=== PATIENT | male | born 1940 | race Caucasian/White ===

== ENCOUNTER 2022-07-31 23:30 | Inpatient (IN) | payer MEDICARE ==
[~2022-07-31] VITALS: Ht 180.3 cm; Wt 68.0 kg
--- NOTE | 2022-08-01 00:10 | NUR ---
Xavier FALKx4, able to express his own concerns. Patient reports he does not feel like eating, taking meds or getting any treatment. Patient AOx4, able to express his concerns. No signs of distress vital signs stable on 2 lt. of Oxygen. Discussed plan of care, xavier verbalized agreement. All Safety precautons taken.
--- NOTE | 2022-08-01 00:12 | NUR ---
Patient refuses IV insertion or blood draw, states nothing needs to be done pertaining to his health.
--- NOTE | 2022-08-01 00:40 | NUR ---
[facility] SWAB COLLECTED AND SENT TO LAB. PATIENT'S BELONGINGS LIST DONE.
[2022-08-01] MEDS ORDERED: OLANZAPINE 10 MG VIAL IM PRN (01:00)
[2022-08-01] MEDS ORDERED: IV NS 0.9% 1,000 ML IV ONE (01:00)
[2022-08-01 02:00] LABS: BASOPHILS % (AUTO) 0.4 % (0.0-2.0); EOSINOPHILS % (AUTO) 0.1 % (0.0-6.0); HEMATOCRIT 42 % (39-51); HEMOGLOBIN 12.9 g/dL (13.5-17.5); LYMPHOCYTES # (AUTO) 0.6 K/uL (0.8-4.8); MEAN CORPUSCULAR HGB CONC 31 g/dl (31.0-36.0); MEAN CORPUSCULAR VOLUME 93 fL (80-96); MONOCYTES # (AUTO) 0.7 K/uL (0.1-1.30); MONOCYTES % (AUTO) 7.5 % (2.0-12.0); NEUTROPHILS # (AUTO) 7.8 K/uL (1.8-8.9); PLATELET COUNT (AUTO) 139 K/uL (150-450); RED BLOOD CELL COUNT(AUTO) 4.55 MIL/uL (4.5-6.0); WHITE BLOOD COUNT (AUTO) 9.2 K/uL (4.3-11.0)
[2022-08-01 02:19] LABS: ALANINE AMINOTRANSFERASE 296 U/L (12-78); ALBUMIN 3.2 g/dL (3.4-5.0); ALKALINE PHOSPHATASE 257 U/L (46-116); ASPARTATE AMINOTRANSFERASE 222 U/L (15-37); BILIRUBIN,DIRECT 0.4 mg/dL (0.0-0.2); BILIRUBIN,TOTAL 0.9 mg/dL (0.2-1.0); CALCIUM, SERUM 9.1 mg/dL (8.5-10.1); CHLORIDE 109 mmol/L (98-107); CREATININE 2.5 mg/dL (0.6-1.3); GLUCOSE 227 mg/dL (74-106); POTASSIUM 5.8 mmol/L (3.5-5.1); SODIUM SERUM 144 mmol/L (136-145); TOTAL PROTEIN, SERUM 6.5 g/dL (6.4-8.2); UREA NITROGEN, BLOOD 78 mg/dL (7-18)
[2022-08-01 02:21] LABS: ALCOHOL, BLOOD < 3 mg/dL (0-10)
[2022-08-01 02:26] LABS: CARBON DIOXIDE 20 mmol/L (21-32)
[2022-08-01] MEDS ORDERED: SODIUM POLYSTYRENE SULFONATE 15 G/60 ML BOTTLE PO ONE ×2 (02:30→15:00)
[2022-08-01] MEDS ORDERED: INSULIN REGULAR, HUMAN 100 UNIT/ML 10 ML VIAL IV ONE (02:30)
[2022-08-01] MEDS ORDERED: FUROSEMIDE 40 MG/4 ML VIAL IV ONE (02:30)
[2022-08-01] MEDS ORDERED: DEXTROSE 50%-WATER 50 ML DISP.SYRIN IV ONE (02:30)
[2022-08-01] MEDS ORDERED: FUROSEMIDE 20 MG/2 ML VIAL ONE (02:48)
[2022-08-01 02:55] LABS: BILIRUBIN,URINE NEGATIVE (NEGATIVE); COLOR,URINE DARK YELLOW (YELLOW); LEUKOCYTE ESTERASE ,URINE 2+ (NEGATIVE); NITRITE, URINE NEGATIVE (NEGATIVE); PROTEIN,URINE 2+ mg/dl (NEGATIVE); UGLUCOSE 3+ mg/dL (NEGATIVE)
[2022-08-01 02:57] LABS: BACTERIA,URINE Few /HPF (None Seen); SQUAMOUS EPITHELIAL CELL,UR Few /HPF (None Seen)
[2022-08-01] MEDS ORDERED: FLUD0.1T PO (03:29)
[2022-08-01] MEDS ORDERED: EMPA10TA PO (03:29)
[2022-08-01] MEDS ORDERED: ATOR20TA PO (03:29)
[2022-08-01] MEDS ORDERED: MIDO5TAB4 PO (03:29)
[2022-08-01] MEDS ORDERED: NICO-676 TP (03:29)
[2022-08-01] MEDS ORDERED: PANT40TA49 PO (03:29)
[2022-08-01] MEDS ORDERED: METO25PO2 MC (03:29)
[2022-08-01] MEDS ORDERED: ASPI-1169 PO (03:29)
--- NOTE | 2022-08-01 03:31 | NUR ---
Report given to Clotilde RN-[facility], patient clear for transfer
--- NOTE | 2022-08-01 03:46 | NUR ---
PT TRANSFERRING TO [facility] VIA ACLS PROTOCOL. VSS. ALL BELONGINGS WITH PT
--- NOTE | 2022-08-01 04:32 | NUR ---
MS/TELE/RN RECEIVED PATIENT FROM [facility] AT AROUND 03:45. PATIENT WAS AWAKE, ALERT, ORIENTED X 1, NO C/O PAIN, APPEAR COMFORTABLE, NO SIGNS OF DISTRESS NOTED. UNABLE TO OBTAIN ADMISSION INFORMATIONS THE PATIENT IS NOT ABLE TO ANSWER TO ADMISSION QUESTIONS. PHYSICAL ASSESSMENT WAS DONE, PHOTOS WERE TAKEN ON SKIN PROBLEMS. NURSING CARE DONE. REPOSITIONED TO COMFORT. FALL PRECAUTIONS PER PROTOCOL IMPLEMENTED. TAUGHT THE USE OF CALL LIGHT AND PLACED IT AT BEDSIDE WITHIN REACH. WILL MONITOR.
[2022-08-01 05:30] VITALS: BP 126/76; TEMP 97.9
[2022-08-01] MEDS ORDERED: DEXTROSE 50%-WATER 50 ML DISP.SYRIN IV PRN (05:30)
[2022-08-01] MEDS ORDERED: ACETAMINOPHEN 325 MG TABLET PO PRN (05:30)
[2022-08-01] MEDS ORDERED: IV NS 0.9% 1,000 ML IV PRN ×2 (05:30→14:04)
[2022-08-01] MEDS ORDERED: ONDANSETRON HCL/PF 4 MG/2 ML VIAL IVP PRN (05:30)
[2022-08-01] MEDS ORDERED: CEFTRIAXONE 1GM BAG (ER ONLY) 50 ML IV ONE (05:44)
[2022-08-01] MEDS ORDERED: CEFTRIAXONE 1 G in IV D5W 50 ML IV SCH (06:00)
--- NOTE | 2022-08-01 06:33 | NUR ---
MS/TELE/RN PATIENT REFUSED ACCU CHECK. EXPLAINED IMPORTANCE BUT WAS PASSIVE. WILL ENDORSE TO NEXT RN.
--- NOTE | 2022-08-01 06:34 | NUR ---
MS/TELE/RN CALLED [facility], SPOKE TO MARIANO PHELAN, PER ZHANE, PATIENT IS FULL CODE, NO ADVANCE DIRECTIVE NOR POLST. NO INFORMATIONS ABOUT VACCINES, PATIENT NOT ABLE TO AMBULATE, PUREED DIET CRUSH MEDICATIONS.
[2022-08-01 07:00] VITALS: BP 120/63; TEMP 98.7
[2022-08-01] MEDS: BLOOD SUGAR DIAGNOSTIC 1 EACH STRIP IN SCH ×4 (07:30→22:18)
--- NOTE | 2022-08-01 08:19 | NUR ---
RN OPENING NOTE RECEIVED PATIENT IN BED, ALERT AND ORIENTED TO NAME, REFUSED ACCU CHECK THIS MORNING X 3. ABLE TO RESPONDS ALL PHYSICAL STIMULI. RESPIRATORY EVEN AND UNLABORED WITH OXYGEN AT 2Ls VIA NC. IN NO ACUTE RESPIRATORY DISTRESS OBSERVED. SKIN IS WARM TO TOUCH, KEEP CLEAN/DRY. NOTICED Lt- BKA, MULTIPLE BRUISES ON BILATERAL UPPER EXTREMITIES/CHEST, AND SUTURED ON RT HAND. KEPT ELEVATED HOB FOR ASPIRATION PRECAUTION/ENSURE AIRWAY, ALSO LOWEST BED POSITIONED. BED ALARM IS ON AT ALL TIMES FOR SAFETY. CALL LIGHT WITHIN REACH, WILL CONTINUE TO MONITOR.
[2022-08-01] MEDS: PANTOPRAZOLE 40 MG TABLET.DR PO SCH (09:00)
[2022-08-01] MEDS: ASPIRIN 81 MG TAB.CHEW PO SCH (09:00)
[2022-08-01] MEDS ORDERED: METOPROLOL TARTRATE 25 MG TABLET PO SCH (09:00)
[2022-08-01] MEDS ORDERED: METO25TA6 PO (10:35)
--- NOTE | 2022-08-01 10:44 | NUR ---
PATIENT RECIEVED NEW ORDER LOVENOX 40MG SQ DAILY FOR DVT PROPHYLAXIS. NOTED AND CARRY OUT.
[2022-08-01] MEDS: ENOXAPARIN SODIUM 30 MG/0.3 ML DISP.SYRIN SQ SCH (11:58)
[2022-08-01 12:00] VITALS: BP 116/77; TEMP 97.5
--- NOTE | 2022-08-01 12:20 | NUR ---
PATIENT HAS BEEN DONE ECHOCARDIOGRAM AND NOTED EF IS 15%, INFORMED DR. SARAVIA.
[2022-08-01] MEDS ORDERED: SODIUM POLYSTYRENE SULF. PWD 15 GM UDC PO ONE (14:30)
[2022-08-01 15:22] LABS: CALCIUM, SERUM 8.5 mg/dL (8.5-10.1); CARBON DIOXIDE 22 mmol/L (21-32); CHLORIDE 109 mmol/L (98-107); GLUCOSE 205 mg/dL (74-106); POTASSIUM 4.4 mmol/L (3.5-5.1); SODIUM SERUM 142 mmol/L (136-145); UREA NITROGEN, BLOOD 75 mg/dL (7-18)
[2022-08-01] MEDS ORDERED: BUMETANIDE INJ 6 MG in IV NS 0.9% 36 ML IV ONE (15:30)
[2022-08-01 16:00] VITALS: BP 120/69; TEMP 98.4
--- NOTE | 2022-08-01 17:18 | NUR ---
POTASSIUM LEVEL WAS 5.8 FROM PREVIOUS, AND RECHECKED POTASSIUM LEVEL IS 4.4. CLARIFIED WITH DR. KNIGHT, WILL HOLD KAYEXALATE AND SODIUM POLYSTYRENE.
[2022-08-01] MEDS: INSULIN REGULAR, HUMAN 100 UNIT/ML 3 ML VIAL SQ PRN ×2 (17:33→22:20)
[2022-08-01] MEDS: METOPROLOL TARTRATE 25 MG TABLET PO SCH (17:43)
[2022-08-01] MEDS: MIDODRINE HCL (5MG) 5 MG TABLET PO SCH (17:43)
--- NOTE | 2022-08-01 18:57 | NUR ---
RN CLOSING NOTE PATIENT RESTING IN BED, IN NO ACUTE DISTRESS OBSERVED. RESPIRATORY EVEN AND UNLABORED IN ROOM AIR, NO SOB OR DESATURATION NOTED. SKIN IS WARM TO TOUCH KEEP CLEAN/DRY. KEPT ELEVATED HOB FOR ENSURE AIRWAY/ASPIRATION PRECAUTION. BED ALARM IS ON AT ALL TIMES FOR SAFETY. CALL LIGHT WITHIN REACH, WILL ENDORSE DIRECTOR UTILIZATION MANAGEMENT.
[2022-08-01 20:00] VITALS: BP 106/72; TEMP 98.2
--- NOTE | 2022-08-01 20:02 | NUR ---
MS/TELE/RN PATIENT APPEARS SLEEPING, APPEARS COMFORTABLE, NO SIGNS OF DISTRESS NOTED, CALL LIGHT IN REACH, FALL PRECAUTIONS PER PROTOCOL IMPLEMENTED, WILL MONITOR.
[2022-08-01] MEDS: ATORVASTATIN 10 MG TABLET PO SCH (22:18)
[2022-08-02] VITALS: BP 104/69; TEMP 97.8
[2022-08-02 05:15] VITALS: BP 102/52; TEMP 98
--- NOTE | 2022-08-02 06:43 | NUR ---
MS/TELE/RN PATIENT IS AWAKE AND ALERT, NO CHANGE IN CONDITION, REFUSED ACCU CHECK, EXPLAINED IMPORTANCE BUT STILL REFUSED. WILL ENDORSE TO NEXT RN. ALL NEEDS ATTENDED AT THIS TIME, WILL CONTINUE TO MONITOR.
--- NOTE | 2022-08-02 07:15 | NUR ---
RN OPENING NOTE RECEIVED PATIENT IN BED ASLEEP BUT AROUSABLE, A/O X1 IN NO ACUTE DISTRESS OBSERVED. RESPIRATORY EVEN AND UNLABORED IN ROOM AIR, NO SOB OR DESATURATION NOTED. SKIN IS WARM TO TOUCH KEEP CLEAN/DRY. KEPT ELEVATED HOB FOR ENSURE AIRWAY/ASPIRATION PRECAUTION. PATIENT STILL REFUSING ACCU CHECK AT THIS TIME. BED ALARM IS ON, CALL LIGHT WITHIN REACH, WILL CONTINUE TO MONITOR
[2022-08-02] MEDS: BLOOD SUGAR DIAGNOSTIC 1 EACH STRIP IN SCH ×4 (07:30→21:08)
[2022-08-02 08:00] VITALS: BP 119/71; TEMP 97.6
[2022-08-02] MEDS: CEFTRIAXONE 1 G in IV D5W 50 ML IV SCH (08:35)
[2022-08-02] MEDS: NICOTINE PATCH (7MG) 7 MG PATCH.TD24 TD SCH (08:35)
[2022-08-02] MEDS: ASPIRIN 81 MG TAB.CHEW PO SCH (08:36)
[2022-08-02] MEDS: PANTOPRAZOLE 40 MG TABLET.DR PO SCH (08:36)
[2022-08-02] MEDS: MIDODRINE HCL (5MG) 5 MG TABLET PO SCH ×4 (08:45→17:06)
[2022-08-02] MEDS: METOPROLOL TARTRATE 25 MG TABLET PO SCH ×2 (08:46→17:07)
[2022-08-02] MEDS: EMPAGLIFLOZIN 25 MG TABLET PO SCH (08:52)
[2022-08-02] MEDS: ENOXAPARIN SODIUM 30 MG/0.3 ML DISP.SYRIN SQ SCH (08:54)
--- NOTE | 2022-08-02 09:21 | NUR ---
Patient refused blood draw. Patient reeducated about importance of current lab values, including risks and benefits but patient still refused. Charge nurse blair, made aware.
[2022-08-02] MEDS: FUROSEMIDE 100 MG/10 ML VIAL IV SCH ×4 (09:30→17:15)
--- NOTE | 2022-08-02 09:59 | NUR ---
WOUND CARE CONSULT: PT PRESENTS WITH MULTIPLE SKIN ISSUES INCLUDING DRY WOUNDS/SCABS TO RT FOOT, DISCOLORATION/SCARRING TO LEFT BELOW KNEE AMPUTATION STUMP, SACRAL SCARRING AND RT HAND/THUMB PURULENT WOUNDS WITH SUTURES, ALL PRESENT ON ADMISSION. DR HOLLOWAY AND DR PRABHAKAR CALLED FOR DPM AND SURGICAL CONSULTS. DISCUSSED SKIN PROTECTION AND WOUND CARE RECOMMENDATIONS FOR SACRAL SCAR AND HAND WOUNDS WITH NURSING STAFF. PT IS INCONTINENT OF STOOL. PT IS THIN AND BONY. MD IN AGREEMENT WITH PLAN OF CARE. Addendum: 08/02/22 at 1001 by AVA TOLBERT WNDNU Amended: Links added.
--- NOTE | 2022-08-02 10:03 | NUR ---
Patient refused 1st dose of lasix 80mg, IV, Q4H. Risks and benefits of taking medications explained but patient still refused. Charge nurse MD александр informed.
[2022-08-02] MEDS: NEOMY SULF/BACITRAC ZN/POLY 15 GM TUBE TP SCH (11:00)
[2022-08-02 12:00] VITALS: BP 120/68; TEMP 97.8
[2022-08-02] MEDS: GLUCERNA SHAKE 237 ML CAN PO SCH ×2 (12:47→17:08)
--- NOTE | 2022-08-02 13:21 | NUR ---
Patient refused Midodrine HCL, 5mg, 1 tab, PO, TID. Risks and benefits of taking timely medications explained but patient still refused. Charge nurse MD александр informed
--- NOTE | 2022-08-02 13:35 | NUR ---
Patient refused 2nd dose of Lasix 80mg, IV, Q4H. Patient reeducated and explained risks and benefits of taking timely medications but patient still refused. Charge nurse MD александр informed
[2022-08-02 16:00] VITALS: BP 105/60; TEMP 98
[2022-08-02] MEDS: INSULIN REGULAR, HUMAN 100 UNIT/ML 3 ML VIAL SQ PRN ×2 (17:15→21:12)
--- NOTE | 2022-08-02 17:16 | NUR ---
Patient refused 3rd dose of Lasix 80mg, IV, Q4H. Patient reeducated and explained risks and benefits of taking timely medications but patient still refused. Charge nurse MD александр informed
--- NOTE | 2022-08-02 18:21 | NUR ---
RN CLOSING NOTE PATIENT RESTING IN BED, A/O X1, WITH BOUTS OF CONFUSION, IN NO ACUTE DISTRESS OBSERVED. RESPIRATORY EVEN AND UNLABORED IN 2L OXYGEN, SATURATING WELL, NO SOB OR DESATURATION NOTED. SKIN IS WARM TO TOUCH KEEP CLEAN/DRY. WOUND CARE NURSE SEEN THE PATIENT. APPLIED TRIPLE ANTIBIOTIC, ON RIGHT HAND, DRY WEST APPLIED, KEPT C/D/I. HOB ELEVATED, PATIENT ON ASPIRATION PRECAUTION, ALL MEDICATIONS CRUSHED. BED ALARM ON AT ALL TIMES FOR SAFETY. CALL LIGHT WITHIN REACH, WILL BE ENDORSED TO PM SHIFT NURSE FOR TIFFANY
--- NOTE | 2022-08-02 19:30 | NUR ---
EMPLOYEE RELATIONS ADVISOR OPENING NOTE RECEIVED PATIENT IN BED, WITH HOB ELEVATED, ALERT AND ORIENTED X 1 WITH CONFUSION. AFEBRILE AND NOT IN ANY FORM OF ACUTE DISTRESS. ON O2 INHALATION VIA NASAL CANNULA AT 2LPM. NO C/O PAIN OR DISCOMFORT AT THIS TIME. WITH IV ACCESS ON LFA 18-SL. SAFETY MEASURES IN PLACE. KEPT BED IN LOCKED AND IN LOW POSITION. SIDE RAILS UP X2. ADVISED YO USE THE CALL LIGHT WHEN IN NEED OF ASSISTANCE.
[2022-08-02 20:00] VITALS: BP 116/75; TEMP 97.3
[2022-08-02] MEDS: ATORVASTATIN 10 MG TABLET PO SCH (21:12)
[2022-08-03] VITALS: BP 108/61; TEMP 97.3
[2022-08-03 04:00] VITALS: BP 124/64; TEMP 97.5
--- NOTE | 2022-08-03 06:30 | NUR ---
POLE SANDER OPERATOR CLOSING NOTE PATIENT IN BED, WITH HOB ELEVATED, ASLEEP BUT EASY TO AROUSE AND RESPONSIVE. ABLE TO MAKE NEEDS KNOWN. AFEBRILE AND NOT IN ANY FORM OF ACUTE DISTRESS. ON O2 INHALATION VIA NASAL CANNULA AT 2LPM. NO C/O PAIN OR DISCOMFORT THROUGHOUT THE SHIFT. ON TELE MONITORING WITH CURRENT READING OF V PACING 81. WITH IV ACCESS ON LFA 18-SL. MONITORED FOR ANY S/SX. OF HYPO/HYPERGLYCEMIA. MEDICATED ORDERED. SAFETY MEASURES IN PLACE. KEPT BED IN LOCKED AND IN LOW POSITION. SIDE RAILS UP X2. ADVISED YO USE THE CALL LIGHT WHEN IN NEED OF ASSISTANCE. ALL NURSING NEEDS ATTENDED. ENDORSED TO INCOMING SHIFT FOR CONTINUITY OF CARE.
[2022-08-03] MEDS: BLOOD SUGAR DIAGNOSTIC 1 EACH STRIP IN SCH ×4 (06:49→21:44)
[2022-08-03] MEDS: INSULIN REGULAR, HUMAN 100 UNIT/ML 3 ML VIAL SQ PRN ×4 (06:52→21:43)
--- NOTE | 2022-08-03 07:30 | NUR ---
PERFECT BINDER OPERATOR OPENING NOTE PATIENT RECEIVED IN BED, WITH HOB ELEVATED, ASLEEP AND APPEARS COMFORTABLE. AFEBRILE AND NOT IN ANY FORM OF ACUTE DISTRESS. ON O2 INHALATION VIA NASAL CANNULA AT 2LPM. PER PREVIOUS SHIFT ENDORSEMENT, NO C/O PAIN OR DISCOMFORT THROUGHOUT THE PREVIOUS SHIFT. ON TELE MONITORING WITH CURRENT READING OF V PACING 81. WITH IV ACCESS ON LFA 18-SL. SAFETY MEASURES IN PLACE. BED KEPT IN LOCKED LOWEST POSITION. SIDE RAILS UP X2. ADVISED TO USE THE CALL LIGHT WHEN IN NEED OF ASSIST. ALL NURSING NEEDS ATTENDED TO, WILL CONTINUE TO MONITOR.
[2022-08-03] MEDS: CEFTRIAXONE 1 G in IV D5W 50 ML IV SCH (07:46)
[2022-08-03] MEDS: GLUCERNA SHAKE 237 ML CAN PO SCH ×3 (07:56→17:30)
[2022-08-03 08:00] VITALS: BP 102/46; TEMP 98.8
[2022-08-03] MEDS: NICOTINE PATCH (7MG) 7 MG PATCH.TD24 TD SCH (08:39)
[2022-08-03] MEDS: ENOXAPARIN SODIUM 30 MG/0.3 ML DISP.SYRIN SQ SCH (08:39)
[2022-08-03] MEDS: ASPIRIN 81 MG TAB.CHEW PO SCH (08:40)
[2022-08-03] MEDS: PANTOPRAZOLE 40 MG TABLET.DR PO SCH (08:41)
[2022-08-03] MEDS: MIDODRINE HCL (5MG) 5 MG TABLET PO SCH ×3 (08:41→16:46)
[2022-08-03] MEDS: METOPROLOL TARTRATE 25 MG TABLET PO SCH ×2 (08:43→16:46)
[2022-08-03] MEDS: EMPAGLIFLOZIN 25 MG TABLET PO SCH (08:47)
[2022-08-03] MEDS: NEOMY SULF/BACITRAC ZN/POLY 15 GM TUBE TP SCH (08:47)
[2022-08-03 08:55] LABS: BASOPHILS % (AUTO) 0.3 % (0.0-2.0); EOSINOPHILS % (AUTO) 0.9 % (0.0-6.0); HEMATOCRIT 39 % (39-51); HEMOGLOBIN 12.4 g/dL (13.5-17.5); LYMPHOCYTES # (AUTO) 0.5 K/uL (0.8-4.8); LYMPHOCYTES % (AUTO) 7.1 % (20.0-44.0); MEAN CORPUSCULAR HGB CONC 32 g/dl (31.0-36.0); MEAN CORPUSCULAR VOLUME 89 fL (80-96); MONOCYTES # (AUTO) 0.6 K/uL (0.1-1.30); MONOCYTES % (AUTO) 8.2 % (2.0-12.0); NEUTROPHILS % (AUTO) 83.5 % (43.0-81.0); PLATELET COUNT (AUTO) 108 K/uL (150-450); RED BLOOD CELL COUNT(AUTO) 4.34 MIL/uL (4.5-6.0); WHITE BLOOD COUNT (AUTO) 7.2 K/uL (4.3-11.0)
[2022-08-03 09:27] LABS: ALANINE AMINOTRANSFERASE 212 U/L (12-78); ALBUMIN 2.6 g/dL (3.4-5.0); ALKALINE PHOSPHATASE 222 U/L (46-116); ASPARTATE AMINOTRANSFERASE 89 U/L (15-37); BILIRUBIN,TOTAL 0.6 mg/dL (0.2-1.0); CALCIUM, SERUM 8.2 mg/dL (8.5-10.1); CARBON DIOXIDE 32 mmol/L (21-32); CHLORIDE 109 mmol/L (98-107); CREATININE 1.7 mg/dL (0.6-1.3); GLUCOSE 147 mg/dL (74-106); MAGNESIUM 2.1 mg/dL (1.8-2.4); PHOSPHORUS 4.1 mg/dL (2.5-4.9); POTASSIUM 3.5 mmol/L (3.5-5.1); SODIUM SERUM 146 mmol/L (136-145); TOTAL PROTEIN, SERUM 5.6 g/dL (6.4-8.2); UREA NITROGEN, BLOOD 60 mg/dL (7-18)
[2022-08-03 12:00] VITALS: BP 106/67; TEMP 97.6
[2022-08-03 16:00] VITALS: BP 101/64; TEMP 98.3
--- NOTE | 2022-08-03 18:30 | NUR ---
FLAME HARDENING MACHINE SETTER CLOSING NOTE PATIENT IN BED IN SEMI-CALVIN'S POSITION, RESTING COMFORTABLY. NO SOB OR RESPIRATORY DISTRESS NOTED, ON O2 INHALATION VIA NASAL CANNULA AT 2LPM. NO C/O PAIN OR DISCOMFORT AT THIS TIME. PT ON TELE MONITORING WITH CURRENT READING OF V PACING 81. WITH IV ACCESS ON LFA 18-SL. PT REMAINS FREE FROM S/S OF HYPO/HYPERGLYCEMIA. PT WAS MEDICATED ORDERED AND TOLERATED ALL MEDICATIONS WELL, SAFETY MEASURES IN PLACE, BED IN LOCKED, LOWEST POSITION, SIDE RAILS UP X2. ADVISED TO USE THE CALL LIGHT WHEN IN NEED OF ASSISTANCE. ALL NURSING NEEDS ATTENDED TO. WILL ENDORSE TO ONCOMING BAR PILOT FOR CONTINUITY OF CARE.
--- NOTE | 2022-08-03 19:30 | NUR ---
ELECTRON GUN ASSEMBLER OPENING NOTE RECEIVED PATIENT IN BED, AWAKE, ALERT AND ORIENTED X2. ABLE TO MAKE NEEDS KNOWN. AFEBRILE AND NOT IN ANY FORM OF ACUTE DISTRESS. ON O2 INHALATION VIA NASAL CANNULA AT 2LPM. NO C/O PAIN OR DISCOMFORT AT THIS TIME. SAFETY MEASURES IN PLACE. KEPT BED IN LOCKED AND IN LOW POSITION. SIDE RAILS UP X2. ADVISED TO USE THE CALL LIGHT WHEN IN NEED OF ASSISTANCE.
--- NOTE | 2022-08-03 19:31 | NUR ---
DENTAL CERAMIST ASSISTANT NOTE PATIENT ON TELE MONITORING WITH CURRENT READING OF V PACING 87. WITH IV ACCESS ON LFA 18G-SL.
[2022-08-03] MEDS: ATORVASTATIN 10 MG TABLET PO SCH (21:42)
--- NOTE | 2022-08-03 22:03 | NUR ---
DISPATCHER TUGBOAT NOTE SPOKE WITH DAUGHTER LEYLA ([phone]) TO GET CONSENT OVER THE PHONE FOR PROPOSED PROCEDURE (SERIAL DEBRIDEMENT AND BIOPSY ON RIGHT THUMB) FOR TOMORROW AND AGREED TO IT. MARIANO AGUILERA ALSO SPOKE TO T HE DAUGHTER TO VERIFY CONSENT.
[2022-08-03 22:40] VITALS: BP 94/53; TEMP 97.5
[2022-08-04] VITALS: BP 108/59; TEMP 97.5
[2022-08-04 00:44] VITALS: BP 108/59; TEMP 97.5
[2022-08-04 04:00] VITALS: BP 115/76; TEMP 97.5
[2022-08-04] MEDS ORDERED: SILVER NITRATE APPLICATOR 1 EA BOX TP SCH (06:00)
[2022-08-04] MEDS ORDERED: LIDOCAINE 1%-EPI 1:100,000 20 ML VIAL TP ONE (06:00)
[2022-08-04 06:22] LABS: BASOPHILS % (AUTO) 0.6 % (0.0-2.0); EOSINOPHILS % (AUTO) 1.7 % (0.0-6.0); HEMATOCRIT 37 % (39-51); HEMOGLOBIN 11.9 g/dL (13.5-17.5); LYMPHOCYTES # (AUTO) 0.5 K/uL (0.8-4.8); LYMPHOCYTES % (AUTO) 7.5 % (20.0-44.0); MEAN CORPUSCULAR HGB CONC 32 g/dl (31.0-36.0); MEAN CORPUSCULAR VOLUME 90 fL (80-96); MONOCYTES # (AUTO) 0.7 K/uL (0.1-1.30); MONOCYTES % (AUTO) 10.2 % (2.0-12.0); NEUTROPHILS # (AUTO) 5.2 K/uL (1.8-8.9); PLATELET COUNT (AUTO) 102 K/uL (150-450); RED BLOOD CELL COUNT(AUTO) 4.16 MIL/uL (4.5-6.0); WHITE BLOOD COUNT (AUTO) 6.6 K/uL (4.3-11.0)
--- NOTE | 2022-08-04 06:30 | NUR ---
AIR CREW SUPERVISOR CLOSING NOTE PATIENT IN BED, ASLEEP BUT EASY TO AROUSE AND RESPONSIVE. ABLE TO MAKE NEEDS KNOWN. AFEBRILE AND NOT IN ANY FORM OF ACUTE DISTRESS. ON O2 INHALATION VIA NASAL CANNULA AT 2LPM. NO C/O PAIN OR DISCOMFORT THROUGHOUT THE SHIFT. ON TELE MONITORING WITH CURRENT READING OF V PACING 85. WITH IV ACCESS ON LFA 18G-SL. MONITORED FOR ANY S/SX. OF HYPO/HYPERGLYCEMIA. MEDICATED ORDERED. SAFETY MEASURES IN PLACE. KEPT BED IN LOCKED AND IN LOW POSITION. SIDE RAILS UP X2. ADVISED TO USE THE CALL LIGHT WHEN IN NEED OF ASSISTANCE. ALL NURSING NEEDS ATTENDED. ENDORSED TO INCOMING SHIFT FOR CONTINUITY OF CARE.
[2022-08-04] MEDS: BLOOD SUGAR DIAGNOSTIC 1 EACH STRIP IN SCH ×4 (06:34→22:00)
[2022-08-04 06:38] LABS: CALCIUM, SERUM 8.3 mg/dL (8.5-10.1); CARBON DIOXIDE 30 mmol/L (21-32); CHLORIDE 107 mmol/L (98-107); CREATININE 1.3 mg/dL (0.6-1.3); GLUCOSE 96 mg/dL (74-106); MAGNESIUM 2.2 mg/dL (1.8-2.4); PHOSPHORUS 3.3 mg/dL (2.5-4.9); POTASSIUM 3.2 mmol/L (3.5-5.1); SODIUM SERUM 144 mmol/L (136-145); UREA NITROGEN, BLOOD 52 mg/dL (7-18)
--- NOTE | 2022-08-04 07:25 | NUR ---
NEGATIVE ASSEMBLER OPENING NOTE Received pt asleep, arouses easily, A/O x 2. No pain/discomfort noted at this time. IV access in the LFA #15g, sl. With O2 via NC at 2lpm, saturating well. On tele monitor with current reading of V pacing-85. Safety precautions maintained: bed in lowest locked position, side rails up x 3, call light and tray table within easy reach. Will continue to monitor.
[2022-08-04 08:00] VITALS: BP 100/56; TEMP 97.9
[2022-08-04] MEDS: ENOXAPARIN SODIUM 30 MG/0.3 ML DISP.SYRIN SQ SCH ×2 (09:00→09:45)
[2022-08-04] MEDS: METOPROLOL TARTRATE 25 MG TABLET PO SCH ×3 (09:00→17:07)
--- NOTE | 2022-08-04 09:00 | NUR ---
RN NOTE Discontinued tele monitor per doctor's order.
--- NOTE | 2022-08-04 09:05 | NUR ---
RN NOTE Patient refused Lovenox due at 0900 despite education, will continue to monitor.
[2022-08-04] MEDS: CEFTRIAXONE 1 G in IV D5W 50 ML IV SCH (09:13)
[2022-08-04] MEDS: GLUCERNA SHAKE 237 ML CAN PO SCH ×3 (09:13→16:38)
[2022-08-04] MEDS: PANTOPRAZOLE 40 MG TABLET.DR PO SCH (09:44)
[2022-08-04] MEDS: NICOTINE PATCH (7MG) 7 MG PATCH.TD24 TD SCH (09:44)
[2022-08-04] MEDS: POTASSIUM CHLORIDE 20 MEQ TAB.PRT.SR PO SCH ×3 (09:45→11:00)
[2022-08-04] MEDS: ASPIRIN 81 MG TAB.CHEW PO SCH (09:45)
[2022-08-04] MEDS: MIDODRINE HCL (5MG) 5 MG TABLET PO SCH ×3 (09:45→17:06)
[2022-08-04] MEDS: EMPAGLIFLOZIN 25 MG TABLET PO SCH (09:51)
[2022-08-04] MEDS: NEOMY SULF/BACITRAC ZN/POLY 15 GM TUBE TP SCH (09:51)
[2022-08-04] MEDS: INSULIN REGULAR, HUMAN 100 UNIT/ML 3 ML VIAL SQ PRN ×2 (12:21→16:44)
[2022-08-04 16:00] VITALS: BP 106/65; TEMP 97.4
--- NOTE | 2022-08-04 18:41 | NUR ---
MS RN CLOSING NOTE Patient resting in bed. A/O x 2, able to make needs known. No pain/discomfort noted at this time. IV access in the LFA #15g, sl. With O2 via NC at 2lpm, saturating well. Needs attended. Safety precautions maintained: bed in lowest locked position, side rails up x 3, call light and tray table within easy reach. Will endorse flaco to medical sales associate.
[2022-08-04 20:00] VITALS: BP 101/60; TEMP 97.2
[2022-08-04] MEDS: ATORVASTATIN 10 MG TABLET PO SCH (22:00)
--- NOTE | 2022-08-04 22:57 | NUR ---
REFUSED MEDICATION/ ACCU CHECK Patient uncooperative, refuses due medication Lipitor, unable to educate, patient confused. Also refusing Accu check, declined education.
--- NOTE | 2022-08-05 05:55 | NUR ---
END OF SHIFT REPORT Patient in bed, Alert Oriented x1-2. Oxygen sat high 90's in 2L NC. IV peripheral line LFA intact. Patient uncooperative with treatment, refused to be turned. Skin injury prevention explained, declined education. ACCU check with sliding insulin parameters. Right hand/thumb dressing clean and dry, denies pain. Plan for continue abx for UTI, Serial debridement wound Right thumb with Biopsy right thumb mass. Will endorse to oncoming RN.
--- NOTE | 2022-08-05 06:05 | NUR ---
REFUSED AM LAB AM lab not drawn as patient refused. Given education, patient declined to listen.
[2022-08-05] MEDS: INSULIN REGULAR, HUMAN 100 UNIT/ML 3 ML VIAL SQ PRN ×2 (06:53→11:29)
[2022-08-05] MEDS: BLOOD SUGAR DIAGNOSTIC 1 EACH STRIP IN SCH ×2 (06:54→11:22)
--- NOTE | 2022-08-05 06:55 | NUR ---
ACCU CHECK Bld glucose 242mg/dl. Given insulin per sliding scale, co signed by MARIANO Neal.
--- NOTE | 2022-08-05 07:25 | NUR ---
RN MS Opening Note Pt awake in bed resting. Appears comfortable. A/O*2, hard of hearing. No s/s of pain noted at this time. On oxygen 2L NC,breathing even and unlabored, no distress or SOB note. IV access Left forearm 18G SL, intact patent and flushing well. Fall and safety measures in place, bed alarm, bed in low and locked position, call light and table within easy reach, side rails up*2. Will continue monitoring.
[2022-08-05] MEDS: GLUCERNA SHAKE 237 ML CAN PO SCH ×2 (08:04→12:15)
[2022-08-05] MEDS: CEFTRIAXONE 1 G in IV D5W 50 ML IV SCH (08:05)
[2022-08-05 08:19] VITALS: BP 106/68; TEMP 97.5
[2022-08-05] MEDS: ASPIRIN 81 MG TAB.CHEW PO SCH (08:25)
[2022-08-05] MEDS: PANTOPRAZOLE 40 MG TABLET.DR PO SCH (08:26)
[2022-08-05] MEDS: NICOTINE PATCH (7MG) 7 MG PATCH.TD24 TD SCH (08:26)
[2022-08-05] MEDS: ENOXAPARIN SODIUM 30 MG/0.3 ML DISP.SYRIN SQ SCH (08:28)
[2022-08-05] MEDS: MIDODRINE HCL (5MG) 5 MG TABLET PO SCH ×2 (08:32→13:36)
[2022-08-05] MEDS: METOPROLOL TARTRATE 25 MG TABLET PO SCH (08:44)
[2022-08-05] MEDS: NEOMY SULF/BACITRAC ZN/POLY 15 GM TUBE TP SCH (09:03)
[2022-08-05] MEDS: EMPAGLIFLOZIN 25 MG TABLET PO SCH (09:03)
[2022-08-05] MEDS ORDERED: POTASSIUM CHLORIDE 20 MEQ TAB.PRT.SR PO SCH (11:30)
--- NOTE | 2022-08-05 16:00 | NUR ---
READING AIDE NOTES PT DISCHARGED TO [facility] ROOM 3A IN STABLE CONDITION. A/O X2 WITH SOME CONFUSION/ FORGETFULNESS. ABLE TO MAKE NEEDS KNOWN. TOLERATED ROOM AIR WITH NO ACUTE DISTRESS NOTED. V/S TAKEN, STABLE AND RECORDED. PHOTOS OF SKIN ISSUES TAKEN AND FILED ON HIS CHART. PT HAS ONLY TV REMOTE CONTROL AND LEFT BOOT SLEEVE ON THE STUMP WITH NO BOOT. IV ACCESS ON LFA G#18 REMOVED WITH NO ACTIVE BLEEDING NOTED, DRY PRESSURE DRESSING APPLIED AT SITE. CALLED AND REPORT GIVEN TO SO (MARIANO) OF [facility] AND VERBALIZED UNDERSTANDING. LEFT VOICEMAIL TO PT'S DAUGHTER LEYLA @ TEL # [phone] THAT PT WILL BE DISCHARGED BACK TO [facility]. EXIT FOLDER HANDED TO EMT'S. PT LEFT UNIT @ 1530 VIA ESTHER ACCOMPANIED BY 2 EMT'S FROM [facility]. CHARGE NURSE AWARE OF DISCHARGE.
[2022-08-05 16:07] VITALS: BP 105/73; TEMP 97.5
== END 2022-08-05 16:23 | DRG 291 ==
LOC: ER 23:32 → MED 08-01 02:51 → TELE 08-01 03:40 → MED 08-02 13:08 → TELE 08-02 13:08 → MED 08-04 09:01
PROVIDERS: ADMIT Nurse Practitioner Acute Care; ATTEND Nurse Practitioner Acute Care
DX: I13.0 Hypertensive heart and chronic kidney disease with heart failure and stage 1 through stage 4 chronic kidney disease, or unspecified chronic kidney disease (principal); G93.41 Metabolic encephalopathy; N17.0 Acute kidney failure with tubular necrosis; I50.43 Acute on chronic combined systolic (congestive) and diastolic (congestive) heart failure; E87.20 Acidosis, unspecified; J90 Pleural effusion, not elsewhere classified; N39.0 Urinary tract infection, site not specified; E44.0 Moderate protein-calorie malnutrition; R62.7 Adult failure to thrive; N18.9 Chronic kidney disease, unspecified; F03.90 Unspecified dementia, unspecified severity, without behavioral disturbance, psychotic disturbance, mood disturbance, and anxiety; E11.22 Type 2 diabetes mellitus with diabetic chronic kidney disease; E11.51 Type 2 diabetes mellitus with diabetic peripheral angiopathy without gangrene; I70.201 Unspecified atherosclerosis of native arteries of extremities, right leg; L97.519 Non-pressure chronic ulcer of other part of right foot with unspecified severity; E11.621 Type 2 diabetes mellitus with foot ulcer; Z89.512 Acquired absence of left leg below knee; Z95.0 Presence of cardiac pacemaker; Z86.73 Personal history of transient ischemic attack (TIA), and cerebral infarction without residual deficits; Z79.84 Long term (current) use of oral hypoglycemic drugs; Z79.82 Long term (current) use of aspirin; Z79.899 Other long term (current) drug therapy; R74.01 Elevation of levels of liver transaminase levels; E78.5 Hyperlipidemia, unspecified; E87.5 Hyperkalemia; E87.6 Hypokalemia; D69.6 Thrombocytopenia, unspecified; F17.200 Nicotine dependence, unspecified, uncomplicated; G89.4 Chronic pain syndrome; I42.9 Cardiomyopathy, unspecified; S61.011A Laceration without foreign body of right thumb without damage to nail, initial encounter; X58.XXXA Exposure to other specified factors, initial encounter; Y92.9 Unspecified place or not applicable; R22.31 Localized swelling, mass and lump, right upper limb; L89.616 Pressure-induced deep tissue damage of right heel; R80.9 Proteinuria, unspecified
CPT/HCPCS: 36415; 70450-TC; 71045-TC; 76700-TC; 80048-TC; 80053-TC; 80076-TC; 81001; 82962-TC; 83735-TC; 84100-TC; 84443-TC; 85025-TC; 87081-TC; 87086-TC; 93307-TC; A4223; A6403; G0378; G0480; J0696; J1650; J1815; J1940; J3490; J7030; J7060